=== PATIENT | female | born 1970 | race Asian ===

== ENCOUNTER → 2022-02-22 10:39 | Outpatient (CLI) | payer OTHER, SELFPAY ==
--- NOTE | 2022-02-22 | DI.US.S_ITS ---
LIMITED ULTRASOUND OF RIGHT BREAST: 02/22/2022 CLINICAL: Late follow-up of cysts. Comparison is made to exams dated: 02/22/2022 mammogram - [facility], 02/11/2021 ultrasound, 02/11/2021 ultrasound, 02/11/2021 mammogram, and 01/18/2021 mammogram - [facility]. Color flow and real-time ultrasound of the right breast 4-5 o'clock, and retroareolar regions were performed. Spear scale images of the real-time examination were reviewed. Previously seen complicated cyst at the 5:00 region is no longer present. There is a stable benign 0.8 cm x 0.8 cm x 0.5 cm oval simple cyst in the right breast central to the nipple anterior depth. This oval simple cyst is anechoic. This correlates with mammography findings. Color flow imaging demonstrates that there is no vascularity present. There also is a benign 0.4 cm simple cyst in the right breast at 9 o'clock middle depth 2 cm from the nipple. This correlates as an incidental finding. IMPRESSION: BENIGN There is no sonographic evidence of malignancy. Previously seen complicated cyst at the 5:00 region is no longer present. Stable 0.8 cm simple cyst in the right breast central to the nipple anterior depth is benign. The 0.4 cm simple cyst in the right breast at 9 o'clock middle depth is benign. A 1 year screening mammogram is recommended. Exam findings were conveyed to the patient. This exam was interpreted at Station ID: [id number]. Electronically Signed By: Patrick Pablo M.D. [facility] [place]/:02/22/2022 11:59:03 letter sent: Normal Exam Ultrasound BI-RADS: 2 Benign
--- NOTE | 2022-02-22 | DI.MG.S_ITS ---
BILATERAL DIGITAL DIAGNOSTIC MAMMOGRAM 3D/2D: 02/22/2022 CLINICAL: Short term follow up of the right breast, due for bilateral imaging. Comparison is made to exams dated: 02/11/2021 ultrasound, 02/11/2021 mammogram, and 01/18/2021 mammogram - [facility]. The tissue of both breasts is heterogeneously dense. This may lower the sensitivity of mammography. The mass in the right breast at 4 o'clock middle depth is no longer seen. There also is a 1 cm asymmetry in the right breast central to the nipple middle depth. This is less prominent. No other significant masses, calcifications, or other findings are seen in either breast. IMPRESSION: INCOMPLETE: NEEDS ADDITIONAL IMAGING EVALUATION Mass in the right breast at 4 o'clock middle depth is no longer seen. Asymmetry in the right breast central to the nipple middle depth is less prominent and remains indeterminate. A targeted ultrasound is recommended and will immediately follow. Based on the Tyrer Cuzick model (a risk assessment model) the patient's lifetime risk is 13.1% and her 10 year risk is 3.6%. According to the ACR, ACS, and NCCN guidelines, an annual breast MRI exam along with mammogram is recommended if the patient's lifetime risk is 20% or greater. This exam was interpreted at Station ID: [id number]. NOTE: For mammograms, a report in lay terms will be sent to the patient. Approximately 15% of breast malignancies will not be visualized mammographically. In the management of a palpable breast mass, a negative mammogram must not discourage biopsy of a clinically suspicious lesion. Electronically Signed By: Patrick Pablo M.D. [facility]/:02/22/2022 11:26:24 ACR BI-RADS Category 0: Incomplete 3340F
== END ==
PROVIDERS: PCP Nurse Practitioner Family; Referring Provider Nurse Practitioner Family; Visit Provider Nurse Practitioner Family
DX: R92.8 Other abnormal and inconclusive findings on diagnostic imaging of breast (principal); N60.01 Solitary cyst of right breast
CPT/HCPCS: 76642; 77066; G0279

== ENCOUNTER → 2023-03-06 08:13 | Outpatient (CLI) | payer OTHER, SELFPAY ==
--- NOTE | 2023-03-06 | DI.MG.S_ITS ---
BILATERAL DIGITAL SCREENING MAMMOGRAM 3D/2D WITH CAD: 03/06/2023 CLINICAL: Routine screening. Comparison is made to exams dated: 02/22/2022 mammogram - [facility], 02/11/2021 mammogram, and 01/18/2021 mammogram - [facility]. Both breasts are heterogeneously dense, which may obscure small masses (category c / 51-75% glandular tissue). Current study was also evaluated with a Computer Aided Detection (CAD) system. No significant masses, calcifications, or other findings are seen in either breast. There has been no significant interval change. IMPRESSION: NEGATIVE There is no mammographic evidence of malignancy. A 1 year screening mammogram is recommended. Based on the Tyrer Cuzick model (a risk assessment model) the patient's lifetime risk is 13.7% and her 10 year risk is 4.0%. According to the ACR, ACS, and NCCN guidelines, an annual breast MRI exam along with mammogram is recommended if the patient's lifetime risk is 20% or greater. This exam was interpreted at Station ID: [id number]. NOTE: For mammograms, a report in lay terms will be sent to the patient. Approximately 15% of breast malignancies will not be visualized mammographically. In the management of a palpable breast mass, a negative mammogram must not discourage biopsy of a clinically suspicious lesion. Electronically Signed By: Leonor cleary/rekha:03/06/2023 08:57:11 letter sent: Normal Exam ACR BI-RADS Category 1: Negative [id number]
== END ==
PROVIDERS: PCP Nurse Practitioner Family; Referring Provider Nurse Practitioner Family; Visit Provider Nurse Practitioner Family
DX: Z12.31 Encounter for screening mammogram for malignant neoplasm of breast (principal)
CPT/HCPCS: 77063; 77067

== ENCOUNTER → 2024-06-01 09:39 | Outpatient (CLI) | payer OTHER, SELFPAY ==
--- NOTE | 2024-06-01 | DI.MG.S_ITS ---
BILATERAL DIGITAL SCREENING MAMMOGRAM 3D/2D WITH CAD: 06/01/2024 CLINICAL: Routine screening. Comparison is made to exams dated: 03/06/2023 mammogram - [facility], 01/18/2021 mammogram - [facility], and 02/22/2022 mammogram - [facility]. The breasts are heterogeneously dense, which may obscure small masses (category c / 51-75% glandular tissue). Current study was also evaluated with a Computer Aided Detection (CAD) system. No significant masses, calcifications, or other findings are seen in either breast. There has been no significant interval change. IMPRESSION: NEGATIVE There is no mammographic evidence of malignancy. A 1 year screening mammogram is recommended. Based on the Tyrer Cuzick model (a risk assessment model) the patient's lifetime risk is 13.5% and her 10 year risk is 4.2%. According to the ACR, ACS, and NCCN guidelines, an annual breast MRI exam along with mammogram is recommended if the patient's lifetime risk is 20% or greater. This exam was interpreted at Station ID: [id number]. NOTE: For mammograms, a report in lay terms will be sent to the patient. Approximately 15% of breast malignancies will not be visualized mammographically. In the management of a palpable breast mass, a negative mammogram must not discourage biopsy of a clinically suspicious lesion. Electronically Signed By: Du soto/rekha:06/03/2024 06:55:37 letter sent: Normal Exam ACR BI-RADS Category 1: Negative
== END ==
LOC: MAMMO 09:40
PROVIDERS: PCP Nurse Practitioner Family; Referring Provider Nurse Practitioner Family; Visit Provider Nurse Practitioner Family
DX: Z12.31 Encounter for screening mammogram for malignant neoplasm of breast (principal); R92.333 Mammographic heterogeneous density, bilateral breasts
CPT/HCPCS: 77063; 77067